=== PATIENT | male | born 1950 | race Caucasian/White ===

== ENCOUNTER 2022-08-02 17:09 | Emergency (ER) | payer MEDICARE, BC, OTHER, SELFPAY ==
[2022-08-02] VITALS (37 sets, daily range): BP systolic 91–136; BP diastolic 45–82; PULSE 58–138; RESP 13–30; TEMP 36.7; O2SAT 94–100
--- NOTE | 2022-08-02 17:00 | RT.EKG_ITS ---
APPROVED REPORT Exam: Resting ECG Reason for Exam: afib Patient Location: E HR:115 bpm ECG Measurements Heart Rate 115 AXIS LA [id number] P [id number] QRSd 101 QRS -42 QT 348 T 62 QTc 482 Conclusion Atrial fibrillation...? atrial activity Left axis deviation...QRS axis (-30,-90)
[2022-08-02] MEDS: Normal Saline 1,000 ML 500 ML IV (17:42)
[2022-08-02 17:53] LABS: Abs Immature Grans 0.01 10^3/uL (0.0-0.06); Absolute Basophil Count 0.06 10^3/uL (0.0-0.2); Absolute Eosinophil Count 0.38 10^3/uL (0.0-0.7); Absolute Lymphocyte Count 2.23 10^3/uL (1.2-3.4); Absolute Monocyte Count 0.68 10^3/uL (0.1-0.8); Absolute Neutrophil Count 3.63 10^3/uL (1.2-6.7); Basophils % 0.9; Eosinophils % 5.4; HCT 39.6 % (40.0-50.0); HGB 13.4 g/dL (13.5-17.5); Immature Grans % 0.1; Lymphocytes % 31.9; MCH 31.9 pg (27.0-33.0); MCHC 33.8 % (32.0-36.0); MCV 94 fL (80-95); MPV 9.7 fL (8.0-11.0); Monocytes % 9.7; Platelet Count 267 10^3/uL (130-400); RDW 13.7 % (11.8-14.1); RDW-SD 47.8 fL; WBC 6.99 10^3/uL (4.4-10.8)
--- NOTE | 2022-08-02 18:07 | ED.GENADUL_ITS ---
Discharge Plan Disposition Patient Disposition: Home Discharge Details Clinical Impression: Atrial fibrillation Primary Care Provider: Michelle,Local ED Provider: Kvng Moura Home Meds and New Rx's Prescriptions: New diltiazem HCl 120 mg capsule,extended release 24hr 120 mg PO DAILY Qty: 30 0RF Continued amino acid-multivit w/iron-min Combo Pack 1 pkg PO DAILY imatinib 400 mg Tablet 400 mg PO DAILY Saccharomyces boulardii [Probiotic (S.boulardii)] 250 mg Capsule 250 mg PO DAILY Eliquis 5 mg Tablet 5 mg PO BID Discontinued flecainide 50 mg Tablet 50 mg PO Q8H Rx Instructions: take 2-3 tabs if feeling palpitions Discharge Instructions Instructions: A-fib (Atrial Fibrillation) (ED) Additional Instructions: As discussed please stop your flecainide and take the extended release diltiazem once daily. You have been given 1 pill and please take this tonight before bed. If you continue to have any significant worsening of symptoms, lightheadedness, rapid heart rate or chest pain return to the emergency department. Otherwise it is very important that you follow-up with your primary care provider for reassessment of your heart rate and any further medication adjustments. Referrals: Primary Care Provider [Outside] - 2 days Medical Decision Making Patient presenting to the emergency department for chief complaint of irregular heart rate. Patient reports history of proximal A-fib with last episode 2-1/2 years ago. Patient reports that last time this was exacerbated by extreme exertion dehydration and low potassium. He does state over the past couple days he has been exerting himself more often and felt occasional muscle cramping similar to previous episode. Approximately 1 hour prior to arrival he started feeling a rapid heart rate. Patient took 2 flecainide which he was given for paroxysmal A-fib which did not resolve his symptoms so he is presenting to the emergency department. Patient does state that he did miss approximately 3 days of his Eliquis due to traveling and running out but restarted this morning. Patient denies all other symptoms including chest pain, syncope, Or leg pain. Physical exam is unremarkable except for trace to 1+ edema of the lower extremities which patient states is normal and unchanged from his baseline and the obvious irregular heart rhythm and tachycardia. We will plan on checking labs and EKG and giving fluids pending results along with push diltiazem Please see physician interpretation for full interpretation of EKG but upon my review patient is in obvious atrial fibrillation, rate of 1 fib with the machine read of left axis deviation. No acute signs of STEMI. We will continue to monitor CBC shows slightly low hemoglobin which patient states that that is his baseline. CMP shows BUN of 19 and glucose of 122 all other labs are unremarkable, troponin is nondetected and TSH is 2.4. Patient reassessed after finishing liter of fluids and receiving 20 of Dilt. He did have improvement of his heart rate which is now in the mid 80s to low 90s and he no longer feels palpitations but does state some dizziness with standing. While sitting in bed did note a blood pressure of 99/49 which I am slightly concerned about. Patient was ordered NS of 150 an hour and given patient's age, not being near home, and hypotension after initiating tilt I do think an observation stay may be warranted and patient is requesting this due to comfortability. After meeting with hospitalist and discussion of outpatient therapy patient now would like to be discharged. Please see hospitalist consult note. Did further discussed with hospitalist low end of normal potassium so we will give patient potassium orally and will discharge patient with prescription for controlled diltiazem and have him take this this evening before bed. Patient otherwise follow-up with primary care provider or return for new or worsening symptoms. After discussion of diagnosis and plan of care patient has no further needs, questions, or concerns and states clear understanding to return to the emergency department for any worsening symptoms. This documentation was generated using [employer] dictation system, please disregard any oddities of phrase or misspellings. HPI General Mode of arrival: ambulatory . Date/Time Provider Initiated Documentation: 08/02/22 17:15 . Limitations to Documentation: no limitations . Information obtained by: patient and RN notes reviewed . History of Present Illness 71 year old M presents to the emergency department with the chief complaint of Rapid heart rate, described as moderate and similar to prior episodes, Patient started experiencing this hour(s) (1) and it has been constant. No relieving factors improve symptom(s), Other factors that worsen symptoms (Exertion) . Patient notes no other symptoms.. Patient did receive the following treatments prior to arrival, other (100mg flecainide) Related Data Home Medications Medication Instructions Recorded Confirmed Saccharomyces radhadii 250 mg 250 mg PO DAILY 08/02/22 08/02/22 capsule (Probiotic (S.boulardii)) amino acids-multivit with iron and 1 pkg PO DAILY 08/02/22 08/02/22 minerals oral combo pack apixaban 5 mg tablet (Eliquis) 5 mg PO BID 08/02/22 08/02/22 diltiazem HCl 120 mg 120 mg PO DAILY #30 caps 08/02/22 capsule,extended release 24 hr imatinib 400 mg tablet 400 mg PO DAILY 08/02/22 08/02/22 Previous Rx's Medication Instructions Recorded diltiazem HCl 120 mg 120 mg PO DAILY #30 caps 08/02/22 capsule,extended release 24 hr Allergies Allergy/AdvReac Type Severity Reaction Status Date / Time No Known Allergies Allergy Unverified 08/02/22 17:16 General Stated Complaint: Arrhythmia KATINA: 3 Review of Systems Constitutional Constitutional: Denies chills, Denies fever(s) and Denies malaise Cardiovascular Cardiovascular: Reports as per HPI, Reports chest pain, Denies chest pain with activity, Denies syncope, Reports irregular heart rhythm, Denies claudication, Denies leg edema, Reports palpitations and Denies dyspnea Respiratory Respiratory: Denies cough, Denies hemoptysis and Denies dyspnea Gastrointestinal Gastrointestinal: Denies abdominal pain, Denies nausea and Denies vomiting Neurologic Neurologic: Denies syncope Psychiatric Psychiatric: Denies anxiety Endocrine Endocrine: Reports palpitations PFSH All Active Problems (Updated 08/02/22 @ 20:35 by Kvng Moura NP) Atrial fibrillation (Chronic) Afib (Chronic) Medical History (Updated 08/02/22 @ 20:35 by Kvng Moura NP) Prostate cancer Stomach cancer Social History Smoking/Tobacco Use Status: Never Smoking risk assessment performed?: Yes Alcohol Intake: never Substance use type: does not use Exam Const General: cooperative, healthy appearing, comfortable, no acute distress, not diaphoretic and not ill appearing Nutritional Appearance: average body habitus Orientation: alert, awake and oriented x3 Limitations: mental status not altered Neck Neck: normal visual inspection, full ROM, trachea midline, supple and no anterior neck swelling Carotids: normal carotid upstroke and no bruits Chest Chest: normal inspection of the chest Resp Effort & Inspection: normal respiratory effort and able to speak in complete sentences Auscultation: clear to auscultation bilaterally Cardio Jugular venous pressure: no JVD Palpation: normal PMI Rate: tachycardic Rhythm: abnormal rhythm irregularly irregular Heart Sounds: S1 normal and S2 normal Bruits: no carotid bruits Pulses: radial pulses present bilaterally 2+ GI Inspection: normal to inspection Palpation: soft, no aortic enlargement, no pulsatile masses and nontender Auscultation: normal bowel sounds Skin General skin exam: no rashes or lesions noted Neuro General: patient alert, patient awake, patient oriented x3, tone normal and moves all extremities Extrem General: edema Laterality: bilateral (1+) Course Vital Signs Vital signs: Vital Signs Temperature 36.7 C 08/02/22 17:11 Pulse 83 08/02/22 17:11 Respiratory Rate 20 08/02/22 17:11 Blood Pressure 123/82 08/02/22 17:11 Pulse Oximetry 98 08/02/22 17:11 Temperature 36.7 C 08/02/22 17:11 Pulse 83 08/02/22 17:11 Respiratory Rate 20 08/02/22 17:11 Respiratory Effort Normal 08/02/22 17:23 Blood Pressure 123/82 08/02/22 17:11 Pulse Oximetry 98 08/02/22 17:11 Oxygen Delivery Method Room Air 08/02/22 17:11 Oxygen Flow Rate 0 08/02/22 17:11 Lab/Test Results Lab/Test Results: Laboratory Tests Range/Units 08/02/22 17:30 WBC (4.4-10.8) 10^3/uL 6.99 RBC (4.36-5.78) 10^6/uL 4.20 L Hgb (13.5-17.5) g/dL 13.4 L Hct (40.0-50.0) % 39.6 L MCV (80-95) fL 94 MCH (27.0-33.0) pg 31.9 MCHC (32.0-36.0) % 33.8 RDW (11.8-14.1) % 13.7 Plt Count (130-400) 10^3/uL 267 MPV (8.0-11.0) fL 9.7 Immature Gran % 0.1 Neutrophils % 52.0 Lymphocytes % 31.9 Monocytes % 9.7 Eosinophils % 5.4 Basophils % 0.9 Nucleated RBC % (0.0-0.3) % 0.0 Absolute Neutrophils (1.2-6.7) 10^3/uL 3.63 Absolute Lymphocytes (1.2-3.4) 10^3/uL 2.23 Absolute Monocytes (0.1-0.8) 10^3/uL 0.68 Absolute Eosinophils (0.0-0.7) 10^3/uL 0.38 Absolute Basophils (0.0-0.2) 10^3/uL 0.06
[2022-08-02] MEDS: dilTIAZem 25 MG/5 ML VIAL 20 MG IVP (18:09)
[2022-08-02 18:17] LABS: ALT 35 U/L (16-63); AST 33 U/L (15-37); Albumin 3.9 g/dL (3.4-5.0); Alkaline Phosphatase 110 U/L (46-116); Anion Gap 10.2 mmol/L (3-11); BUN 19 mg/dL (7-18); Bilirubin, Total 0.3 mg/dL (0.2-1.0); CO2 26.8 mmol/L (21.0-32.0); CREATININE 1.2 mg/dL (0.70-1.30); Calcium 9.1 mg/dL (8.5-10.1); Chloride 102 mmol/L (98-107); Estimated GFR 65.46 (mL/min/1.73m2); Glucose 122 mg/dL (74-106); Magnesium 2.1 mg/dL (1.8-2.4); Potassium 3.5 mmol/L (3.5-5.1); Sodium 139 mmol/L (136-145); TSH (W/Ref FT4) 2.47 uIU/mL (0.36-3.74); Total Protein 7.7 g/dL (6.4-8.2); Troponin I < 50 ng/L (<or=60)
[2022-08-02] MEDS: Normal Saline 1,000 ML 150 ML IV (19:58)
--- NOTE | 2022-08-02 20:18 | W.MEDCONSULT ---
Date of service: 08/02/22 Time of Service: 20:18 Assessment and Plan Assessment and plan (1) Afib: Status: Chronic Assessment and plan: Paroxysmal AF. At this point patient has no further lightheadedness and is not technically orthostatic, with systolic drop of 18 and diastolic rise of 2. I don't think he would require admission and I think it would be reasonable to discharge on low dose sustained release Cardizem and follow up with PCP in 24-48 hours. Might also be worth some K supplement as this is low normal and with recent heat and humidity this may have been playing a role in precipitating current spell. It is noted that patient is already on DOAC.. History of Present Illness History of Present Illness Chief Complaint: palpitations Narrative: 71 make with h/o PAF, last episode 2.5 years ago, converted in hospital he reports with Flecainide. Sent home with pill-in-the pocket dose of Flecainide. Reports sense of palpitation today, took Flecinide 100 mg w/o effect and presented to ER. In ER findings of note for AF rate approx 125. K low normal at 3.5, Mg 2.2, troponin negative and EKG without ischemic changes. Patient given Cardizem 20 IV with slowing of rate to 80-100 range but developed some lightheadedness. Patient given NS 1L. I was asked to evaluate for admission. At present patient states he still is aware of a fluttering feeling in chest but has been up and about and has no further lightheadedness. PFSH All Active Problems (Updated 08/02/22 @ 18:09 by Kvng Moura NP) Afib (Chronic) Medical History (Updated 08/02/22 @ 18:09 by Kvng Moura NP) Prostate cancer Stomach cancer Social History Smoking/Tobacco Use Status: Never Smoking risk assessment performed?: Yes Alcohol Intake: never Substance use type: does not use Exam Narrative Exam Narrative: 121/61 (supine), 94/63 standing, w/o symptoms. Pulse ranging 80-100 throughout. Lungs clear; heart irr/irr; abdomen soft and NT; extremities w/o edema; neuro Ox3, lucid, moves all 4s Results Last Vital Signs Temp 36.7 C 08/02/22 17:11 Pulse 88 08/02/22 19:31 Resp 16 08/02/22 19:31 BP 99/49 L 08/02/22 19:31 Pulse Ox 97 08/02/22 19:31 Labs 08/02/22 17:30 08/02/22 17:30 Labs: Laboratory Results - last 24 hr 08/02/22 08/02/22 17:30 17:30 WBC 6.99 RBC 4.20 L Hgb 13.4 L Hct 39.6 L MCV 94 MCH 31.9 MCHC 33.8 RDW 13.7 Plt Count 267 MPV 9.7 Immature Gran % 0.1 Neutrophils % 52.0 Lymphocytes % 31.9 Monocytes % 9.7 Eosinophils % 5.4 Basophils % 0.9 Nucleated RBC % 0.0 Absolute Neutrophils 3.63 Absolute Lymphocytes 2.23 Absolute Monocytes 0.68 Absolute Eosinophils 0.38 Absolute Basophils 0.06 Sodium 139 Potassium 3.5 Chloride 102 Carbon Dioxide 26.8 Anion Gap 10.2 BUN 19 H Creatinine 1.2 Est GFR (CKD-EPI 2020) 65.46 Glucose 122 H Calcium 9.1 Magnesium 2.1 Total Bilirubin 0.3 AST 33 ALT 35 Alkaline Phosphatase 110 Troponin I < 50 Total Protein 7.7 Albumin 3.9 TSH 2.47
[2022-08-02] MEDS: POTASSIUM CHLORIDE 20 MEQ, POTASSIUM CHLORIDE 10 MEQ 30 MEQ PO (20:58)
[2022-08-02] MEDS: dilTIAZem CD 120 MG CAPCR PO (20:59)
== END 2022-08-02 21:05 | disposition home or self-care (01) ==
PROVIDERS: Emergency Provider Nurse Practitioner Family
DX: I48.91 Unspecified atrial fibrillation (principal)
CPT/HCPCS: 80053; 93005; 96361; 96374; 99283; 99284; 83735; 84443; 84484; 85025; 93010